=== PATIENT | female | born 1985 | race Caucasian/White ===

== ENCOUNTER 2021-02-04 18:10 | Emergency (ER) | payer OTHER ==
--- NOTE | 2021-02-04 19:25 | NUR ---
NIL X1 WHEN CALLED FOR TRIAGE
--- NOTE | 2021-02-04 19:39 | NUR ---
NIL X2 WHEN CALLED FOR TRIAGE
--- NOTE | 2021-02-04 20:17 | NUR ---
NIL X3 WHEN CALLED FOR TRIAGE
== END 2021-02-04 20:18 | disposition left against medical advice (07) ==
LOC: ED 18:20
DX: N23 Unspecified renal colic (principal); Z53.21 Procedure and treatment not carried out due to patient leaving prior to being seen by health care provider

== ENCOUNTER 2021-02-07 08:59 | Outpatient (CLI) | payer OTHER ==
[2021-02-07] MEDS ORDERED: OMNIPAQUE 350 MG/ML, 150 ML BOTTLE ONE (10:04)
== END 2021-02-07 23:59 | disposition home or self-care (01) ==
LOC: CFH 08:59
PROVIDERS: ATTEND Family Medicine
DX: Z13.220 Encounter for screening for lipoid disorders (principal); I10 Essential (primary) hypertension; R31.9 Hematuria, unspecified; D17.71 Benign lipomatous neoplasm of kidney
CPT/HCPCS: 74178; Q9967